=== PATIENT | male | born 1970 | race American Indian/Alaskan Native ===

== ENCOUNTER 2016-06-20 06:14 | Emergency (ER) | payer MEDICARE, OTHER ==
[2016-06-20] MEDS ORDERED: NACL 0.9% 1000 ML 1,000 ML IV ONE (06:26)
[2016-06-20 07:31] LABS: Basophils % (Auto) 0.2 % (0.0-1.8); Eosinophils % (Auto) 1.3 % (0.0-4.3); Hematocrit 26.1 % (35.5-45.6); Hemoglobin 8.2 gm/dl (11.8-15.2); Mean Corpuscular HGB Conc 31 % (32-34); Mean Corpuscular Volume 77 fl (84-94); Platelet Count 324 K/mm3 (140-440); Red Blood Count 3.38 M/mm3 (3.65-5.03); Red Cell Distribution Width 18.1 % (13.2-15.2); White Blood Count 7.7 K/mm3 (4.5-11.0)
[2016-06-20 07:40] LABS: Mean Corpuscular Hemoglobin 24 pg (28-32)
[2016-06-20 07:41] LABS: INR 0.91 (0.87-1.13)
[2016-06-20 07:42] LABS: Partial Thromboplastin Time 25.8 Sec. (24.2-36.6)
[2016-06-20 07:43] LABS: Alanine Aminotransferase 14 units/L (7-56); Albumin 3.5 g/dL (3.9-5); Albumin/Globulin Ratio 1.3 %; Alkaline Phosphatase 74 units/L (35-129); Anion Gap 16 mmol/L; BUN/Creatinine Ratio 14.44; Bilirubin,Total 0.2 mg/dL (0.1-1.2); Blood Urea Nitrogen 13 mg/dL (9-20); Calcium 8.3 mg/dL (8.4-10.2); Carbon Dioxide 24 mmol/L (22-30); Chloride 101.3 mmol/L (98-107); Glucose 127 mg/dL (75-100); Potassium 3.2 mmol/L (3.6-5.0); Sodium 138 mmol/L (137-145); Total Protein 6.3 g/dL (6.3-8.2)
[2016-06-20 08:30] LABS: Lipase 24 units/L (13-60)
--- NOTE | 2016-06-20 11:09 | Emergency Department Report ---
HPI - General Chief Complaint: GI Bleed Time Seen by Provider: 06/20/16 10:53 - HPI HPI: Chief complaint: Rectal bleeding HPI: Patient with a history of fistulas, hemorrhoids, possibly Crohn's disease, C. difficile who is scheduled for a fecal transplant in 4 days states he's been having some rectal bleeding for the last 3 days. Old chart was reviewed and patient has had according to the old chart numerous negative colonoscopies. Patient is seeing a balloon design printer at [facility] who is giving him the fecal transplant for his C. difficile who he spoke with earlier. Patient states that he was told by his balloon design printer that this was most likely from his fistulas and hemorrhoids and he needed to get his fecal transplant. Mode of arrival: private car Source: Patient old chart Began: Monday Duration: 3 days Context: See above Quality: Abdominal cramping Severity: 9 out of 10 Improved with: Nothing Worsened with: Nothing Associated signs and symptoms: No nausea or vomiting or fever, chronic diarrhea from the C. difficile ED Past Medical Hx - Past Medical History Previous Medical History?: Yes Hx Hypertension: Yes Hx HIV: Yes (last CD4 748) Additional medical history: crohn's, colorectal cancer, prostate cancer, fistulas, hemmroids. states "26 blood transfusions 2013". Narcotic dependence and abuse. MRSA/CDIFF - Surgical History Past Surgical History?: Yes Additional Surgical History: colostomy reversal x 4 35 anal surgeries, - Social History Smoking Status: Never Smoker - Medications Home Medications: Home Medications Medication Instructions Recorded Confirmed Last Taken Type Elvitegr/Cobicist/Emtric/Tenof 0 each PO QID 04/30/15 04/30/15 Unknown History [Stribild (Nf)] Oxycodone HCl/Acetaminophen 1 each PO Q4H PRN 04/30/15 04/30/15 Unknown History [Percocet 7.5/325 mg] valACYclovir [Valtrex] 500 mg PO BID 04/30/15 04/30/15 Unknown History Prednisone [predniSONE] 20 mg PO QDAY #5 tab 05/01/15 Unknown Rx traMADol [Ultram] 50 mg PO Q6HR PRN #7 tablet 06/20/16 Unknown Rx ED Review of Systems ROS: Stated complaint: RECTAL BLEEDING/CHRONES PAIN Other details as noted in HPI ROS Constitutional: No fever ENT: No uri symptoms Cardiovascular: No chest pain Respiratory: No sob or cough GI: No nausea vomiting : No dysuria frequency or urgency, Skin: No rash Neuro: No focal weakness or numbness Psych: No depression [place]/lymph: No edema Physical Exam - Physical Exam Vital Signs: Vital Signs 06/20/16 06:21 Temperature 98.4 F Pulse Rate 101 H Respiratory 18 Rate Blood Pressure 150/94 O2 Sat by Pulse 99 Oximetry Physical Exam: GENERAL: The patient is well-developed well-nourished . HEENT: Normocephalic. Atraumatic. Extraocular motions are intact. Patient has moist mucous membranes. NECK: Supple. No meningitic signs are noted. There is no adenopathy noted. CHEST/LUNGS: Clear to auscultation. There is no respiratory distress noted. HEART/CARDIOVASCULAR: Regular. There is no tachycardia. There is no gallop rub or murmur. ABDOMEN: Abdomen is soft, nontender. Patient has normal bowel sounds. There is no abdominal distention. Bright red rectal bleeding SKIN: There is no rash. There is no edema. There is no diaphoresis. NEURO: The patient is awake, alert, and oriented. The patient is cooperative. The patient has no focal neurologic deficits. The patient has normal speech. MUSCULOSKELETAL: There is no tenderness or deformity. There is no limitation range of motion. There is no evidence of acute injury. ED Course Vital Signs 06/20/16 06:21 Temperature 98.4 F Pulse Rate 101 H Respiratory 18 Rate Blood Pressure 150/94 O2 Sat by Pulse 99 Oximetry ED Medical Decision Making - Lab Data Result diagrams: 06/20/16 07:08 06/20/16 07:08 Critical care attestation.: If time is entered above; I have spent that time in minutes in the direct care of this critically ill patient, excluding procedure time. ED Disposition Clinical Impression: Rectal bleeding Disposition: DISCHARGED TO HOME OR SELFCARE Is pt being admited?: No Does the pt Need Aspirin: No Condition: Stable Prescriptions: traMADol [Ultram] 50 mg PO Q6HR PRN #7 tablet PRN Reason: Pain Referrals: PRIMARY CARE, [Primary Care Provider] - 3-5 Days follow-up, your GI doctor at [facility] [Other] - 2-3 Days () Forms: Accompanied Note Time of Disposition: 11:08
[2016-06-20 11:35] VITALS: BP 139/76
== END 2016-06-20 11:35 | disposition home or self-care (01) ==
LOC: ED 06:14
DX: K62.5 Hemorrhage of anus and rectum (principal); I10 Essential (primary) hypertension; K50.90 Crohn's disease, unspecified, without complications; F11.20 Opioid dependence, uncomplicated; Z85.46 Personal history of malignant neoplasm of prostate; Z21 Asymptomatic human immunodeficiency virus [HIV] infection status
CPT/HCPCS: 36415; 80053; 83690; 85025; 85610; 85730; 86850; 86900; 86901; 93005; 93010